=== PATIENT | female | born 1970 ===

== ENCOUNTER → 2022-12-18 | Outpatient (CLI) | payer MEDICAID ==
[~2022-12-18] MED LIST: IOHEXOL 350 MG/ML 100ML IJ ONE
[2022-12-18 16:09] VITALS: BP 136/85; PULSE 84; RESP 16; O2SAT 99
[2022-12-18 16:30] VITALS: BP 143/88; PULSE 83; RESP 16; O2SAT 99
== END | disposition home or self-care (01) ==
LOC: Rad HDHVI 15:57
PROVIDERS: ATTEND Internal Medicine Cardiovascular Disease
DX: R06.02 Shortness of breath (principal)
CPT/HCPCS: 71260; G0463; Q9967